=== PATIENT | female | born 1955 | race Caucasian/White ===

== ENCOUNTER 2018-04-07 15:43 | Inpatient (IN) ==
[2018-04-07] MEDS ORDERED: Bisacodyl 10 MG Supp RECTAL PRN (17:58)
[2018-04-07] MEDS ORDERED: HYDROmorphone PF Inj 1 MG/ML Ampul IV.PUSH PRN ×2 (17:58→18:12)
[2018-04-07] MEDS ORDERED: Acetaminophen 325 MG Tablet PO PRN (17:58)
--- NOTE | 2018-04-07 18:42 | P.HPCC ---
History of Present Illness Primary Care Physician: UNKNOWN History of Present Illness: 62-year-old female transferred here from [facility]. She has a history of COPD, and presented to emergency department at [place] complaining with syncopal episodes prior to admission. The patient related her syncope and presyncopal symptoms of lightheadedness, dizziness, chest pain, and shortness of breath. The patient states she is undergoing chemo therapy for her lymphoma , resulting in a chronic abdominal pain. The patient relates that she is on 2 L home O2. At the [facility] her chest pain was described as a tightness that radiated to left upper extremity, with nausea, shortness of breath, and chronic abdominal pain. She has no history of angina. In the emergency department at [place] they ruled out pulmonary embolism by CT PE angiogram. She was found to be anemic requiring blood transfusion. She underwent upper EGD with finding of active gastrointestinal bleed unable to cauterize or achieve hemostasis with endoscopic procedures. She has been transferred here for higher level of care and IR embolization of gastric artery and further procedures if indicated. The patient has arrived sedated and intubated and no further history is available. Inpatient Certification: I certify that the inpatient services were ordered in accordance with Medicare regulations governing the order. This includes certification that hospital inpatient services are reasonable and necessary and in the case of services not specified as inpatient-only under 42 CFR 419.22(n), that they are appropriately provided as inpatient services in accordance to with the 2-midnight benchmark under 43 CFR 412.3(e) Estimated Total Length of Stay (Days): 5 Plans for Post Hospital Care: Not yet determined Review of Systems unobtainable due to endotracheal tube PMFSH - Medical History Medical History: Medical History (Last Updated 04/07/18 @ 18:41 by Dorian Carmona MD) COPD (chronic obstructive pulmonary disease) Lymphoma Medications and Allergies Active Medications: Active Medications Acetaminophen (Tylenol) 650 mg PO Q6H PRN PRN Reason: PAIN 1-10 AND/OR FEVER >101F Al Hydroxide/Mg Hydroxide (Milk Of Magnesia Liq) 30 ml PO Q12H PRN PRN Reason: Mild Constipation Albuterol (Duoneb Neb (Prn)) 1 ampul NEB Q2HR NEB PRN PRN Reason: WHEEZING Bisacodyl (Dulcolax Supp) 10 mg RECTAL DAILY PRN PRN Reason: SEVERE CONSITIPATION Chlorhexidine Gluconate (Peridex 0.12% Oral Kit) 15 ml OROPHARYNG BID@0800, 2000 [facility] Chlorhexidine Gluconate (Chlorhexidine 2% Cloth) 3 pack TOPICAL DAILY@0400 MICKI Stop: 04/13/18 03:59 Chlorhexidine Gluconate (Chlorhexidine 2% Cloth) 3 pack TOPICAL DAILY@0400 PRN PRN Reason: Extra cloth needed Stop: 04/13/18 03:59 Hydromorphone HCl (Dilaudid Pf Inj) 1 mg IV.PUSH Q4H PRN PRN Reason: PAIN SCALE 6 TO 10 Sodium Chloride (Ns Inj) 1,000 mls @ 154 mls/hr IV.CONT .Q6H30M MICKI Sodium Chloride (Ns Inj) 250 mls @ 15 mls/hr IV.SIG ONCE MICKI Stop: 04/08/18 11:39 Lactulose (Lactulose Liq) 30 ml PO DAILY PRN PRN Reason: SEVERE CONSITIPATION Midazolam HCl (Versed Inj) 2 mg IV.PUSH Q1H PRN PRN Reason: SEDATION Miscellaneous Medication () 1 each OROPHARYNG 0000,0400,1200,1600 [facility] Ondansetron HCl (Zofran Inj) 4 mg IV.PUSH Q6H PRN PRN Reason: NAUSEA OR VOMITING Pantoprazole Sodium (Protonix Inj) 40 mg IV.PUSH Q12H [facility] Senna/Docusate Sodium (Keila-Colace) 1 tab PO BID [facility] Sennosides (Senokot) 17.2 mg PO Q12H PRN PRN Reason: Moderate Constipation Sodium Chloride (Ns Flush) 2 ml IV.FLUSH BID [facility] Sodium Chloride (Ns Flush) 2 ml IV.FLUSH PRN PRN PRN Reason: FLUSH AFTER USING IV ACCESS Allergies Allergy/AdvReac Type Severity Reaction Status Date / Time No Known Allergies Allergy Unverified 04/07/18 17:58 Results - Labs CBC & Chem 7: 04/09/18 04:00 04/09/18 04:00 Exam Vital signs: Vital Signs 04/07/18 17:53 Respiratory Rate 19 Pulse Oximetry 100 Intake & Output 04/06/18 04/07/18 04/07/18 18:59 06:59 18:59 Weight 52 kg - Constitutional moderate distress, chronically ill appearing - Routine HEENT Exam Head: Present: normocephalic, atraumatic Eye: Present: PERRL ENT: Present: mucous membranes moist - Routine Neck Exam Present: supple, full ROM. Absent: JVD - Routine Respiratory Exam Present: patient mechanically ventilated. Absent: accessory muscle use, prolonged expiratory phase, rhonchi, stridor, wheezes - Routine Cardiovascular Exam Present: RRR, S1, S2 - Routine Abdominal Exam Present: soft, normoactive bowel sounds - Routine Extremities Exam Absent: cyanosis, clubbing, edema - Routine Skin Exam Present: intact. Absent: cyanosis, erythema - Routine Neurological Exam Present: altered mental status, moving all extremities Septic Shock Reassessment Septic shock perfusion: reassessment completed Caprini VTE Risk Assessment Caprini VTE Risk Assessment: Moderate/High Risk (score >= 2) VTE Pharmacological Exception Reason: Hemorrhage Caprini Risk Assessment Model: Point Value = 1 Point Value = 2 Point Value = 3 Point Value = 5 Age 41-60 Minor surgery BMI > 25 kg/m2 Swollen legs Varicose veins or History of unexplained or recurrent spontaneous Oral contraceptives or hormone replacement Sepsis (< 1 month) Serious lung disease, including pneumonia (< 1 month) Abnormal pulmonary function Acute myocardial infarction Congestive heart failure (< 1 month) History of inflammatory bowel disease Medical patient at bed rest Age 61-74 Arthroscopic surgery Major open surgery (> 45 min) Laparoscopic surgery (> 45 min) Malignancy Confined to bed (> 72 hours) Immobilizing plaster cast Central venous access Age >= 75 History of VTE Family history of VTE Factor V Leiden Prothrombin [id number] Lupus anticoagulant Anticardiolipin antibodies Elevated serum homocysteine Heparin-induced thrombocytopenia Other congenital or acquired thrombophilia Stroke (< 1 month) Elective arthroplasty Hip, pelvis, or leg fracture Acute spinal cord injury (< 1 month) Prophylaxis Regimen: Total Risk Factor Score Risk Level Prophylaxis Regimen 0-1 Low Early ambulation 2 Moderate Order ONE of the following: *Sequential Compression Device (SCD) *Heparin 5000 units SQ BID 3-4 Higher Order ONE of the following medications: *Heparin 5000 units SQ TID *Enoxaparin/Lovenox 40 mg SQ daily (WT < 150 kg, CrCl > 30 mL/min) *Enoxaparin/Lovenox 30 mg SQ daily (WT < 150 kg, CrCl > 10-29 mL/min) *Enoxaparin/Lovenox 30 mg SQ BID (WT < 150 kg, CrCl > 30 mL/min) AND/OR *Sequential Compression Device (SCD) 5 or more Highest Order ONE of the following medications: *Heparin 5000 units SQ TID (Preferred with Epidurals) *Enoxaparin/Lovenox 40 mg SQ daily (WT < 150 kg, CrCl > 30 mL/min) *Enoxaparin/Lovenox 30 mg SQ daily (WT < 150 kg, CrCl > 10-29 mL/min) *Enoxaparin/Lovenox 30 mg SQ BID (WT < 150 kg, CrCl > 30 mL/min) AND *Sequential Compression Device (SCD) Assessment and Plan - Assessment and Plan Plan: Respiratory failure -Intubated for an airway protection -No weaning until hemostasis achieved -Vent bundle -DuoNeb's as needed Hematemesis with GI bleed -Transferred for higher gastric artery embolization -Monitor series of H&H -Protonix IV twice daily Anemia -Due to above -Series of H&H -Transfuse to keep hemoglobin above 7 COPD -No exacerbation -No indication for steroids or antibiotics at this time -DuoNeb scheduled and as needed -O2 supply to keep sats above 92 DVT GI prophylaxis -Teds SCDs -No pharmacological DVT prophylaxis due to active bleed -Tonics IV twice daily 35 minutes of critical care
[2018-04-07] MEDS ORDERED: hydrALAZINE HCl Inj 20 MG/ML Vial IV.PUSH PRN (18:43)
[2018-04-07] MEDS ORDERED: Sodium Chlor 0.9% Inj 250 ML IV.SIG SCH (19:00)
[2018-04-07] MEDS ORDERED: Gelatin 12 MM/7 MM Topical Foam ONE (19:49)
[2018-04-07] MEDS ORDERED: ceFAZolin 2 GM Premix Inj 2 GM/50 ML PIGGYBACK IV.SIG ONE (20:01)
--- NOTE | 2018-04-07 20:42 | P.RAD ---
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 Vascular - Arterial Procedure Celiac Procedure: Angiogram, Embolization - Additional Information Findings: Clip identified along expected location of lesser curvature. Left gastric traverses right up to clip but no active bleeding identified. Imperic embolization 2nd-3rd order branch of left gastric.
[2018-04-07 21:14] LABS: Baso # (Auto) 0.1 th/mm3 (0.0-0.2); Baso % (Auto) 0.3 % (0.0-2.0); Eos # (Auto) 0.1 th/mm3 (0.0-0.4); Eos % (Auto) 0.2 % (0.0-4.0); Hematocrit 33.2 % (35.0-46.0); Hemoglobin 11.5 gm/dL (11.6-15.3); Lymph # (Auto) 0.1 th/mm3 (1.0-4.8); Lymph % (Auto) 0.6 % (9.0-44.0); Mean Corpuscular HGB Conc 34.7 % (32.0-36.0); Mean Corpuscular Hemoglobin 29.1 pg (27.0-34.0); Mean Corpuscular Volume 83.7 fL (80.0-100.0); Mean Platelet Volume 7.8 fL (7.0-11.0); Mono # (Auto) 1.7 th/mm3 (0.0-0.9); Mono % (Auto) 6.8 % (0.0-8.0); Neut # (Auto) 22.8 th/mm3 (1.8-7.7); Neut % (Auto) 92.1 % (16.0-70.0); Platelet Count 164 th/mm3 (150-450); Red Blood Count 3.97 mil/mm3 (4.00-5.30); White Blood Count 24.8 th/mm3 (4.0-11.0)
[2018-04-07] MEDS: Pantoprazole Inj 40 MG Vial IV.PUSH SCH (21:30)
[2018-04-07 21:34] LABS: Activated Partial Thrombo Time 32.7 sec (23.4-31.7); INR 1.4 Ratio
[2018-04-07 21:37] LABS: Monocytes 2 % (0-8)
[2018-04-07 21:38] LABS: Dohle Bodies Present; Platelet Estimate Normal (Normal); Platelet Morphology Normal (Normal); RBC Morphology Normal (Normal); Toxic Granulation 1+
[2018-04-07] MEDS: Sod Chloride 0.9% Inj 1,000 ML IV.CONT SCH (21:38)
[2018-04-07 21:39] LABS: Anion Gap 9 meq/L (5-15)
[2018-04-07 21:56] LABS: Alanine Aminotransferase 14 U/L (10-53); Alkaline Phosphatase 119 U/L (45-117); Aspartate Aminotransferase 19 U/L (15-37); Blood Urea Nitrogen 10 mg/dL (7-18); Calcium 7.7 mg/dL (8.5-10.1); Carbon Dioxide 30.4 meq/L (21.0-32.0); Chloride 111 meq/L (98-107); Glomerular Filtration Rate Greater Than 89 mL/min (>89); Glucose,Random 102 mg/dL (74-106); Phosphorus 1.5 mg/dL (2.5-4.9); Sodium 150 meq/L (136-145); Total Protein 4.3 g/dL (6.4-8.2)
[2018-04-07 22:13] LABS: Potassium 2.6 meq/L (3.5-5.1)
[2018-04-07] MEDS: Chlorhexidine 0.12% Oral Kit 15 ML UDC OROPHARYNG SCH (22:28)
[2018-04-07] MEDS: Senna/Docusate Sodium 8.6/50 MG Tablet PO SCH (22:28)
[2018-04-07] MEDS ORDERED: Potassium Chloride Liq 20 MEQ/15 ML UDC PO PRN ×2 (22:59)
[2018-04-07] MEDS ORDERED: Magnesium Oxide 400 MG Tablet PO PRN (22:59)
[2018-04-07] MEDS ORDERED: Potassium Phosphate 500 MG Soluble Tablet PO PRN ×2 (22:59)
[2018-04-07] MEDS ORDERED: Potassium Chlor 40 mEq Premix 40 MEQ/100 ML PIGGYBACK IV.SIG PRN (22:59)
[2018-04-07] MEDS ORDERED: Magnesium Sulfate Inj 4 GM in Sodium Chlor 0.9% Inj 92 ML IV.SIG PRN (22:59)
[2018-04-07] MEDS ORDERED: Potassium Chlor 20 mEq Premix 20 MEQ/100 ML PIGGYBACK IV.SIG PRN ×2 (22:59)
[2018-04-07] MEDS ORDERED: Sodium Phosphate Inj 30 MMOL in Sodium Chlor 0.9% Inj 250 ML IV.SIG PRN (22:59)
[2018-04-07] MEDS: Potassium Chlor 40 mEq Premix 40 MEQ/100 ML PIGGYBACK IV.SIG PRN (23:35)
[2018-04-07] MEDS: Oral Hygiene Kit OROPHARYNG SCH (23:42)
[2018-04-08] MEDS: Propofol 1000 mg/100 ml Inj 1,000 MG/100 ML BOTTLE IV.CONT PRN ×2 (01:43→09:06)
[2018-04-08] MEDS: Potassium Chlor 40 mEq Premix 40 MEQ/100 ML PIGGYBACK IV.SIG PRN (03:18)
[2018-04-08] MEDS: Oral Hygiene Kit OROPHARYNG SCH ×4 (03:58→23:46)
[2018-04-08] MEDS: Sod Chloride 0.9% Inj 1,000 ML IV.CONT SCH ×4 (03:58→23:44)
[2018-04-08] MEDS: Chlorhexidine Gluconate 2% 1 Pack (2 Cloths) TOPICAL SCH (03:58)
[2018-04-08] MEDS ORDERED: Chlorhexidine Gluconate 2% 1 Pack (2 Cloths) TOPICAL PRN (04:00)
[2018-04-08 04:51] LABS: Hematocrit 32.8 % (35.0-46.0); Hemoglobin 11.5 gm/dL (11.6-15.3); Mean Corpuscular Volume 85.9 fL (80.0-100.0); Mean Platelet Volume 7.5 fL (7.0-11.0); Platelet Count 161 th/mm3 (150-450); Red Blood Count 3.82 mil/mm3 (4.00-5.30); Red Cell Distribution Width 15.8 % (11.6-17.2); White Blood Count 31.9 th/mm3 (4.0-11.0)
[2018-04-08 05:09] LABS: Activated Partial Thrombo Time 32.4 sec (23.4-31.7); INR 1.4 Ratio; Prothrombin Time 14.6 sec (9.8-11.6)
[2018-04-08 05:18] LABS: Alanine Aminotransferase 10 U/L (10-53); Alkaline Phosphatase 138 U/L (45-117); Anion Gap 6 meq/L (5-15); Aspartate Aminotransferase 20 U/L (15-37); Blood Urea Nitrogen 8 mg/dL (7-18); Calcium 7.1 mg/dL (8.5-10.1); Carbon Dioxide 29.6 meq/L (21.0-32.0); Chloride 116 meq/L (98-107); Glomerular Filtration Rate Greater Than 89 mL/min (>89); Glucose,Random 72 mg/dL (74-106); Magnesium 1.3 mg/dL (1.5-2.5); Phosphorus 1.5 mg/dL (2.5-4.9); Potassium 3.4 meq/L (3.5-5.1); Sodium 152 meq/L (136-145); Total Protein 4.3 g/dL (6.4-8.2)
[2018-04-08] MEDS: Magnesium Sulfate Inj 2 GM in Sodium Chlor 0.9% Inj 96 ML IV.SIG PRN (05:53)
[2018-04-08 07:03] LABS: Dohle Bodies Present; Lymphocytes 1 % (9-44); Monocytes 3 % (0-8); Platelet Estimate Normal (Normal); Platelet Morphology Normal (Normal); RBC Morphology Normal (Normal)
[2018-04-08] MEDS: Pantoprazole Inj 40 MG Vial IV.PUSH SCH ×2 (07:55→17:44)
[2018-04-08] MEDS: Potassium Phosphate Inj 30 MMOL in Sodium Chlor 0.9% Inj 250 ML IV.SIG PRN (07:55)
[2018-04-08] MEDS: Chlorhexidine 0.12% Oral Kit 15 ML UDC OROPHARYNG SCH ×2 (07:56→22:17)
[2018-04-08] MEDS: Senna/Docusate Sodium 8.6/50 MG Tablet PO SCH ×2 (09:07→22:17)
--- NOTE | 2018-04-08 18:10 | P.PNCC ---
Subjective Subjective Remarks/Hospital Course: 62-year-old female transferred here from [facility]. She has a history of COPD, and presented to emergency department at [place] complaining with syncopal episodes prior to admission. The patient related her syncope and presyncopal symptoms of lightheadedness, dizziness, chest pain, and shortness of breath. The patient states she is undergoing chemo therapy for her lymphoma , resulting in a chronic abdominal pain. The patient relates that she is on 2 L home O2. At the [facility] her chest pain was described as a tightness that radiated to left upper extremity, with nausea, shortness of breath, and chronic abdominal pain. She has no history of angina. In the emergency department at [place] they ruled out pulmonary embolism by CT PE angiogram. She was found to be anemic requiring blood transfusion. She underwent upper EGD with finding of active gastrointestinal bleed unable to cauterize or achieve hemostasis with endoscopic procedures. She has been transferred here for higher level of care and IR embolization of gastric artery and further procedures if indicated. The patient has arrived sedated and intubated and no further history is available. 04/08: Underwent IR embolization of gastric artery yesterday, overnight hemodynamically improved with stable H&H. Remains sedated and intubated Objective Vital Signs / I&O: Vital Signs 04/07/18 18:47 04/07/18 20:15 04/07/18 20:38 Temperature 97.9 F Pulse Rate 75 75 Respiratory Rate 19 Blood Pressure 146/78 H Pulse Oximetry 100 100 04/07/18 20:45 04/07/18 20:53 04/07/18 21:08 Temperature Pulse Rate 84 75 Respiratory Rate 15 20 18 Blood Pressure 160/84 H 149/80 H Pulse Oximetry 97 100 100 04/07/18 21:23 04/07/18 21:53 04/07/18 22:00 Temperature Pulse Rate 78 72 70 Respiratory Rate 20 18 Blood Pressure 153/81 H 133/88 Pulse Oximetry 100 100 04/07/18 22:23 04/07/18 22:53 04/07/18 23:23 Temperature Pulse Rate 70 70 75 Respiratory Rate 18 18 20 Blood Pressure 136/86 137/97 H 143/92 H Pulse Oximetry 100 100 100 04/08/18 00:00 04/08/18 00:23 04/08/18 00:47 Temperature 97.6 F Pulse Rate 73 70 Respiratory Rate 16 14 Blood Pressure 147/81 H Pulse Oximetry 100 100 04/08/18 01:23 04/08/18 02:00 04/08/18 02:23 Temperature Pulse Rate 77 79 79 Respiratory Rate 15 14 Blood Pressure 143/83 H 114/74 Pulse Oximetry 100 100 04/08/18 03:23 04/08/18 04:00 04/08/18 04:12 Temperature 98.0 F Pulse Rate 82 80 Respiratory Rate 14 14 14 Blood Pressure 130/76 118/63 Pulse Oximetry 100 100 04/08/18 06:00 04/08/18 07:24 04/08/18 08:00 Temperature 98.1 F Pulse Rate 82 79 Respiratory Rate 15 17 Blood Pressure 112/81 Pulse Oximetry 100 04/08/18 10:16 04/08/18 11:41 04/08/18 12:00 Temperature Pulse Rate 78 97 H Respiratory Rate 18 Blood Pressure Pulse Oximetry 100 04/08/18 13:26 04/08/18 14:00 04/08/18 14:30 Temperature Pulse Rate 85 94 H Respiratory Rate 20 Blood Pressure Pulse Oximetry 100 04/08/18 14:34 Temperature Pulse Rate Respiratory Rate Blood Pressure Pulse Oximetry 100 Intake & Output 04/07/18 04/08/18 04/08/18 18:59 06:59 18:59 Intake Total 1150 / 1150 2300 / 2300 Output Total 750 / 750 Balance 400 / 400 2300 / 2300 Weight 52 kg 44 kg Intake: IV 1150 / 1150 2300 / 2300 Diprivan 1000 mg/100 ml Inj 1, 100 / 100 000 mg In 100 ml @ 5 MCG/KG/MIN 1.56 mls/hr IV.CONT TITRATE PRN Rx#:[id number] NS Inj 1,000 ML @ 154 mls/hr IV 1000 / 1000 1999 / 1999 .CONT .Q6H30M MICKI Rx#:[id number] Magnesium Sulfate Inj 2 GM In 100 / 100 NS Inj 96 ML @ 50 mls/hr IV.SIG UNSCH PRN Rx#:[id number] KCl 40 mEq Premix Inj 40 meq In 100 / 100 100 / 100 100 ml @ 25 mls/hr IV.SIG Q2H PRN Rx#:[id number] Ancef 2 GM Premix Inj 2 gm In 50 / 50 50 ml @ 0 mls/hr IV.SIG .STK- MED ONE Rx#:[id number] Output: Urine Amount (Catheter) 750 / 750 Indwelling Urethral Catheter 750 / 750 Other: Date of Last Bowel Movement 04/07/18 04/08/18 Weight On Admission 43 kg Result Diagrams: 04/09/18 04:00 04/09/18 04:00 Objective Remarks: - Constitutional moderate distress, chronically ill appearing - Routine HEENT Exam Head: Present: normocephalic, atraumatic Eye: Present: PERRL ENT: Present: mucous membranes moist - Routine Neck Exam Present: supple, full ROM. Absent: JVD - Routine Respiratory Exam Present: patient mechanically ventilated. Absent: accessory muscle use, prolonged expiratory phase, rhonchi, stridor, wheezes - Routine Cardiovascular Exam Present: RRR, S1, S2 - Routine Abdominal Exam Present: soft, normoactive bowel sounds - Routine Extremities Exam Absent: cyanosis, clubbing, edema - Routine Skin Exam Present: intact. Absent: cyanosis, erythema - Routine Neurological Exam Present: altered mental status, moving all extremities Assessment and Plan - Assessment and Plan Plan: Respiratory failure -Intubated for an airway protection -Patient hemodynamically stable -Hemostasis achieved with embolization of 2 branches of gastric artery last night -SBT's -Attempt to extubate -DuoNeb's as needed Hematemesis with GI bleed -Transferred for gastric artery embolization -Procedure successfully completed last night -Monitor series of H&H -Protonix IV twice daily Anemia -Due to above -Series of H&H -Transfuse to keep hemoglobin above 7 COPD -No exacerbation -No indication for steroids or antibiotics at this time -DuoNeb scheduled and as needed -O2 supply to keep sats above 92 DVT GI prophylaxis -Teds SCDs -No pharmacological DVT prophylaxis due to active bleed -Protonic IV twice daily 35 minutes of critical care
[2018-04-09 04:24] LABS: Baso # (Auto) 0.2 th/mm3 (0.0-0.2); Baso % (Auto) 0.4 % (0.0-2.0); Eos # (Auto) 0.1 th/mm3 (0.0-0.4); Eos % (Auto) 0.1 % (0.0-4.0); Hematocrit 33.1 % (35.0-46.0); Hemoglobin 11.4 gm/dL (11.6-15.3); Lymph # (Auto) 0.1 th/mm3 (1.0-4.8); Lymph % (Auto) 0.2 % (9.0-44.0); Mean Corpuscular HGB Conc 34.3 % (32.0-36.0); Mean Corpuscular Hemoglobin 29.3 pg (27.0-34.0); Mean Corpuscular Volume 85.3 fL (80.0-100.0); Mean Platelet Volume 7.9 fL (7.0-11.0); Mono # (Auto) 1.7 th/mm3 (0.0-0.9); Mono % (Auto) 4.5 % (0.0-8.0); Neut # (Auto) 37.1 th/mm3 (1.8-7.7); Neut % (Auto) 94.8 % (16.0-70.0); Platelet Count 177 th/mm3 (150-450); Red Blood Count 3.88 mil/mm3 (4.00-5.30); White Blood Count 39.2 th/mm3 (4.0-11.0)
[2018-04-09 04:41] LABS: Alanine Aminotransferase 12 U/L (10-53); Alkaline Phosphatase 164 U/L (45-117); Anion Gap 8 meq/L (5-15); Aspartate Aminotransferase 25 U/L (15-37); Blood Urea Nitrogen 5 mg/dL (7-18); Calcium 6.9 mg/dL (8.5-10.1); Carbon Dioxide 29.9 meq/L (21.0-32.0); Chloride 114 meq/L (98-107); Glomerular Filtration Rate Greater Than 89 mL/min (>89); Glucose,Random 60 mg/dL (74-106); Magnesium 1.4 mg/dL (1.5-2.5); Phosphorus 2.4 mg/dL (2.5-4.9); Sodium 152 meq/L (136-145); Total Protein 4.5 g/dL (6.4-8.2)
[2018-04-09 04:45] LABS: Potassium 2.6 meq/L (3.5-5.1)
[2018-04-09] MEDS: Oral Hygiene Kit OROPHARYNG SCH ×2 (05:01→13:41)
[2018-04-09] MEDS: Chlorhexidine Gluconate 2% 1 Pack (2 Cloths) TOPICAL SCH (05:01)
[2018-04-09] MEDS: Pantoprazole Inj 40 MG Vial IV.PUSH SCH (05:01)
[2018-04-09] MEDS: Potassium Chlor 40 mEq Premix 40 MEQ/100 ML PIGGYBACK IV.SIG PRN ×2 (05:01→19:45)
[2018-04-09] MEDS: Magnesium Sulfate Inj 2 GM in Sodium Chlor 0.9% Inj 96 ML IV.SIG PRN (05:20)
[2018-04-09 05:31] LABS: Eosinophils 1 % (0-4); Lymphocytes 2 % (9-44); Monocytes 1 % (0-8)
[2018-04-09 05:32] LABS: Platelet Estimate Normal (Normal); Platelet Morphology Normal (Normal); Toxic Granulation 1+
[2018-04-09] MEDS: Potassium Phosphate Inj 30 MMOL in Sodium Chlor 0.9% Inj 250 ML IV.SIG PRN (07:34)
[2018-04-09] MEDS: Senna/Docusate Sodium 8.6/50 MG Tablet PO SCH ×2 (09:16→20:09)
[2018-04-09] MEDS: Chlorhexidine 0.12% Oral Kit 15 ML UDC OROPHARYNG SCH ×2 (09:16→19:17)
--- NOTE | 2018-04-09 14:24 | P.PNIM ---
Subjective Interval history: Reports that she feels hungry. Wants to eat. No further bloody stools or black tarry stools. Reports no abdominal pain. No nausea or vomiting. Physical Exam Vital signs: Vital Signs 04/08/18 14:30 04/08/18 14:34 04/08/18 16:00 Temperature 98.4 F Pulse Rate 94 H 79 Respiratory Rate 20 Blood Pressure 157/94 H Pulse Oximetry 100 04/08/18 19:35 04/08/18 20:00 04/08/18 22:00 Temperature 97.9 F Pulse Rate 94 H 77 Respiratory Rate 24 Blood Pressure 150/95 H Pulse Oximetry 96 92 L 04/09/18 00:00 04/09/18 02:00 04/09/18 04:00 Temperature 97.9 F 98.2 F Pulse Rate 87 78 75 Respiratory Rate 22 19 Blood Pressure 145/84 H 134/94 H Pulse Oximetry 99 98 04/09/18 06:00 04/09/18 08:00 04/09/18 08:03 Temperature Pulse Rate 79 74 Respiratory Rate 21 Blood Pressure 115/68 Pulse Oximetry 99 99 04/09/18 10:00 04/09/18 12:00 Temperature Pulse Rate 80 67 Respiratory Rate 20 Blood Pressure 120/85 Pulse Oximetry 100 Intake & Output 04/08/18 04/09/18 04/09/18 18:59 06:59 18:59 Intake Total 2560 / 2560 1000 / 1000 200 / 200 Output Total 750 / 750 3600 / 3600 200 / 200 Balance 1810 / 1810 -2600 / -2600 0 / 0 Weight 42 kg Intake: IV 2560 / 2560 1000 / 1000 200 / 200 Diprivan 1000 mg/100 ml Inj 1, 100 / 100 000 mg In 100 ml @ 5 MCG/KG/MIN 1.56 mls/hr IV.CONT TITRATE PRN Rx#:[id number] NS Inj 1,000 ML @ 154 mls/hr IV 1999 / 1999 1000 / 1000 .CONT .Q6H30M [facility]ICKI Rx#:[id number] Magnesium Sulfate Inj 2 GM In 100 / 100 100 / 100 NS Inj 96 ML @ 50 mls/hr IV.SIG UNSCH PRN Rx#:[id number] KCl 40 mEq Premix Inj 40 meq In 100 / 100 100 / 100 100 ml @ 25 mls/hr IV.SIG Q2H PRN Rx#:[id number] Potassium Phosphate Inj 30 MMOL 260 / 260 In NS Inj 250 ML @ 42 mls/hr IV.SIG UNSCH PRN Rx#:[id number] Oral 0 / 0 Output: Urine 450 / 450 200 / 200 Urine Amount (Catheter) 750 / 750 3150 / 3150 Indwelling Urethral Catheter 750 / 750 3150 / 3150 Other: # Voids 1 1 Date of Last Bowel Movement 04/08/18 04/08/18 04/09/18 # Bowel Movements 5 # Incontinent Bowel Movements 7 Narrative: Thin white female sitting up in her bed in no acute distress Cardiovascular regular rhythm regular rate Lungs relatively clear, diminished breath sounds bilaterally Abdomen soft nontender Extremities no cyanosis clubbing edema Neurological exam alert and oriented x3 does move bilateral upper and lower extremities Urinary Catheter Management Indwelling Urethral Catheter: Cath placed during this visit: yes, but has since been removed by the nurse Reason for continuing: Decision to DC catheter Removal date: 04/09/18 Removal time: 05:00 Results Labs CBC & Chem 7: 04/09/18 04:00 04/09/18 04:00 Assessment and Plan (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 - Non-Hodgkin lymphoma, unspecified, intra-abdominal lymph nodes Status: Acute (2) GI bleed: Code(s): K92.2 - Gastrointestinal hemorrhage, unspecified Status: Acute (3) Acute blood loss anemia: Code(s): D62 - Acute posthemorrhagic anemia Status: Acute Plan 60-year-old female with a history of COPD with O2 dependence at 2 L, lymphoma transferred from [facility] after she presented with presyncope symptoms of lightheadedness and dizziness and found to have active GI bleed with inability to cauterize or achieve hemostasis and transferred to [place] critical care for embolization. Acute GI bleed-with a history of gastric lymphoma with active bleed status post gastric artery embolization 04/08 by interventional radiology Serial hemoglobin hematocrit has been stable. Continue with Protonix 40 mg IV twice daily Start full liquid diet, continue monitor hemoglobin. Acute anemia blood loss due to GI bleedhemoglobin hematocrit has been stable overnight. Continue Protonix Acute respiratory failure status post intubation for airway protection now extubated History of COPD with 2 L of oxygenno active exacerbation, continue with DuoNeb treatment and wean O2 as tolerated History of lymphoma with leukocytosisfollow-up with oncologist Hypokalemiareplete Hypophosphatemiareplete Hypomagnesiareplete schedule magnesium Hypernatremia - stop IVF NS, encourage oral water intake. DVT prophylaxisSCDs, no anticoagulation secondary to GI bleed Transfer out of the intensive care unit If respiratory status and hemoglobin continues to be stable consideration for discharge home in the morning. Progress Note: Quality VTE Deep Vein Thrombosis/Pulmonary Embolism Present on Admission: No
[2018-04-09] MEDS ORDERED: Naloxone Inj 0.4 MG/ML Vial IV.PUSH PRN (14:27)
[2018-04-09] MEDS ORDERED: Acetaminophen 325 MG Tablet PO PRN (14:27)
[2018-04-09] MEDS: Magnesium Oxide 400 MG Tablet PO SCH (20:08)
[2018-04-10] MEDS: Chlorhexidine Gluconate 2% 1 Pack (2 Cloths) TOPICAL SCH (06:01)
[2018-04-10 06:03] LABS: Baso # (Auto) 0.6 th/mm3 (0.0-0.2); Baso % (Auto) 2.6 % (0.0-2.0); Eos # (Auto) 0.1 th/mm3 (0.0-0.4); Eos % (Auto) 0.3 % (0.0-4.0); Hematocrit 32.2 % (35.0-46.0); Hemoglobin 11.1 gm/dL (11.6-15.3); Lymph # (Auto) 0.4 th/mm3 (1.0-4.8); Lymph % (Auto) 1.8 % (9.0-44.0); Mean Corpuscular HGB Conc 34.5 % (32.0-36.0); Mean Platelet Volume 8.2 fL (7.0-11.0); Mono # (Auto) 0.7 th/mm3 (0.0-0.9); Neut % (Auto) 92.3 % (16.0-70.0); Platelet Count 160 th/mm3 (150-450); Red Cell Distribution Width 16.4 % (11.6-17.2); White Blood Count 23.9 th/mm3 (4.0-11.0)
[2018-04-10 06:55] LABS: Anion Gap 7 meq/L (5-15); Blood Urea Nitrogen 3 mg/dL (7-18); Calcium 7.1 mg/dL (8.5-10.1); Carbon Dioxide 30.9 meq/L (21.0-32.0); Chloride 109 meq/L (98-107); Glomerular Filtration Rate Greater Than 89 mL/min (>89); Glucose,Random 57 mg/dL (74-106); Magnesium 1.4 mg/dL (1.5-2.5); Sodium 147 meq/L (136-145)
[2018-04-10 07:10] LABS: Albumin 1.9 g/dL (3.4-5.0); Calcium-Albumin Corrected 8.8 mg/dL (8.5-10.1)
[2018-04-10 07:18] LABS: Potassium 2.8 meq/L (3.5-5.1)
[2018-04-10 07:39] LABS: Eosinophils 1 % (0-4); Monocytes 3 % (0-8)
[2018-04-10 07:40] LABS: Platelet Estimate Normal (Normal); Platelet Morphology Normal (Normal); RBC Morphology Normal (Normal)
[2018-04-10] MEDS: Senna/Docusate Sodium 8.6/50 MG Tablet PO SCH ×2 (08:15→21:33)
[2018-04-10] MEDS: Chlorhexidine 0.12% Oral Kit 15 ML UDC OROPHARYNG SCH ×2 (08:15→21:30)
[2018-04-10] MEDS: Magnesium Oxide 400 MG Tablet PO SCH ×3 (08:15→21:29)
[2018-04-10] MEDS: Potassium Chlor 40 mEq Premix 40 MEQ/100 ML PIGGYBACK IV.SIG PRN (09:50)
[2018-04-10] MEDS: Magnesium Sulfate Inj 2 GM in Sodium Chlor 0.9% Inj 96 ML IV.SIG PRN (10:05)
[2018-04-10] MEDS ORDERED: Potassium Chloride 25 MEQ Effervescent Tablet PO ONE (12:18)
--- NOTE | 2018-04-10 12:23 | P.PNIM ---
Subjective Interval history: No further stools. No abdominal pain. Tolerating full liquids. Would like to try soft diet. States that history of hypokalemia and difficult to treat. Physical Exam Vital signs: Vital Signs 04/09/18 13:33 04/09/18 14:00 04/09/18 14:01 Temperature Pulse Rate 84 91 H 94 H Respiratory Rate 19 27 H 30 H Blood Pressure 132/74 Pulse Oximetry 94 L 99 94 L 04/09/18 15:00 04/09/18 16:00 04/09/18 16:01 Temperature Pulse Rate 76 66 66 Respiratory Rate 20 18 18 Blood Pressure 130/79 154/84 H Pulse Oximetry 96 98 98 04/09/18 17:00 04/09/18 18:00 04/09/18 19:00 Temperature Pulse Rate 75 67 79 Respiratory Rate 31 H 19 21 Blood Pressure 122/76 164/84 H 125/83 Pulse Oximetry 86 L 100 98 04/09/18 20:00 04/09/18 20:07 04/09/18 20:22 Temperature 99.3 F Pulse Rate 82 79 Respiratory Rate 19 24 Blood Pressure 130/88 Pulse Oximetry 98 98 98 04/09/18 21:00 04/09/18 22:00 04/09/18 23:00 Temperature Pulse Rate 79 75 77 Respiratory Rate 25 H 19 18 Blood Pressure 137/93 H 125/79 138/78 Pulse Oximetry 99 98 94 L 04/10/18 00:00 04/10/18 01:00 04/10/18 02:00 Temperature 98.7 F Pulse Rate 71 66 69 Respiratory Rate 19 18 16 Blood Pressure 132/86 161/91 H 136/77 Pulse Oximetry 97 98 96 04/10/18 03:00 04/10/18 04:00 04/10/18 06:00 Temperature 98.5 F Pulse Rate 70 73 81 Respiratory Rate 29 H 15 Blood Pressure 135/80 154/89 H Pulse Oximetry 97 94 L 04/10/18 07:00 04/10/18 08:00 04/10/18 08:52 Temperature 98.3 F Pulse Rate 60 65 99 H Respiratory Rate 16 19 23 Blood Pressure 160/92 H 142/83 H Pulse Oximetry 100 100 98 04/10/18 08:53 04/10/18 08:55 04/10/18 09:00 Temperature Pulse Rate 99 H 114 H 100 H Respiratory Rate 28 H 32 H 22 Blood Pressure 128/68 128/72 Pulse Oximetry 98 86 L 98 04/10/18 09:07 04/10/18 10:00 04/10/18 11:20 Temperature 97.8 F Pulse Rate 92 H 81 Respiratory Rate 20 Blood Pressure 146/80 H Pulse Oximetry 97 100 Intake & Output 04/09/18 04/10/18 04/10/18 18:59 06:59 18:59 Intake Total 200 / 200 340 / 340 260 / 260 Output Total 800 / 800 750 / 750 Balance -600 / -600 -410 / -410 260 / 260 Weight 41.7 kg Intake: IV 200 / 200 100 / 100 260 / 260 Magnesium Sulfate Inj 2 GM In 100 / 100 NS Inj 96 ML @ 50 mls/hr IV.SIG UNSCH PRN Rx#:[id number] KCl 40 mEq Premix Inj 40 meq In 100 / 100 100 / 100 100 ml @ 25 mls/hr IV.SIG Q2H PRN Rx#:[id number] Potassium Phosphate Inj 30 MMOL 260 / 260 In NS Inj 250 ML @ 42 mls/hr IV.SIG UNSCH PRN Rx#:[id number] Oral 240 / 240 Output: Urine 800 / 800 750 / 750 Other: # Voids 8 7 Date of Last Bowel Movement 04/09/18 04/10/18 04/10/18 # Bowel Movements 9 6 Narrative: Thin white female sitting up in her bed in no acute distress Cardiovascular regular rhythm regular rate Lungs relatively clear, diminished breath sounds bilaterally Abdomen soft nontender Extremities no cyanosis clubbing edema Neurological exam alert and oriented x3 does move bilateral upper and lower extremities Urinary Catheter Management Indwelling Urethral Catheter: Cath placed during this visit: yes, but has since been removed by the nurse Reason for continuing: Decision to DC catheter Removal date: 04/09/18 Removal time: 05:00 Results Labs CBC & Chem 7: 04/10/18 03:30 04/10/18 03:30 Assessment and Plan (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 after she presented with presyncope symptoms of lightheadedness and dizziness and found to have active GI bleed with inability to cauterize or achieve hemostasis and transferred to [place] critical care for embolization. Acute GI bleed-with a history of gastric lymphoma with active bleed status post gastric artery embolization 04/08 by interventional radiology Serial hemoglobin hematocrit has been stable. Continue with Protonix 40 mg IV twice daily Tolerating full liquid diet will advance to soft diet today. Continue monitor hemoglobin. Acute anemia blood loss due to GI bleedhemoglobin hematocrit has been stable overnight. Continue Protonix Acute respiratory failure status post intubation for airway protection now extubated History of COPD with 2 L of oxygenno active exacerbation, continue with DuoNeb treatment and wean O2 as tolerated History of lymphoma with leukocytosisfollow-up with oncologist Hypokalemiareplete; patient given 60 mEq IV today ;we will recheck this afternoon Hypophosphatemiareplete Hypomagnesiareplete; increase schedule magnesium dose Hypernatremia - stop IVF NS, encourage oral water intake. DVT prophylaxisSCDs, no anticoagulation secondary to GI bleed Transfer out of the intensive care unit If respiratory status and hemoglobin continues to be stable; and potassium improves, consideration for discharge home in the morning. Patient declines home health care. Progress Note: Quality VTE Deep Vein Thrombosis/Pulmonary Embolism Present on Admission: No
--- NOTE | 2018-04-10 15:34 | P.DIET ---
Nutritional Evaluation Type of nutrition evaluation: initial Nutrition consult regarding: Diet Evaluation Nutrition screening: Weight Loss > 10 lbs Screening comments: 04/09/18 WLS Subjective Subjective Comments: Pt mentioned she has not consumed any solid food for a month and that she lost 30lb in the last 6 months d/t chemo/gastric ulcer pain. Pt said she dislikes Ensure and would rather drink carnation instant breakfast. Objective - Diagnosis lymphoma - Indications of Malnutrition Classification: Chronic disease or injury-related Malnutrition Severity: Severe Characteristics: Weight loss (30lb in 6 months (~25% of usual body wt of 120lb)) , Fat loss (severe body fat loss of orbital, triceps.), Muscle loss (severe muscle loss of clavicles, shoulders.) - Objective Body Mass Index: 16.7 % IBW: 83 (IBW = 110lb) Body Weight Used for Calculations: IBW (for protein needs), Actual (for everngy needs 41.7kg) Energy Needs - Lower Range (kCal/kg): 30 Energy Needs - Upper Range (kCal/kg): 35 Lower Limit kCal/kg (kCals): 1,251 Upper Limit kCal/kg (kCals): 1,460 Lower Limit Protein Factor (Grams per Kg): 1.2 Upper Limit Protein Factor (Grams per Kg): 1.4 Lower Protein Needs (Protein): 60 Upper Protein Needs (Protein): 70 Dietitian Reviewed in Medical Record: Current diet, Curent medications, Intake & Output, Labs, Medical history Diet Order: regular, soft Oral Diet Intake Amount: Fair 50-75% Objective Comments: PMH: COPD, lymphoma Labs: K+ 2.8, Ca+ 7.1, random glucose 57 LBM 04/08/18 04/08/18 s/p gastric artery embolization by IR Assessment Assessment: Pt currently at nutritional risk r/t reported unplanned wt loss. Pt is on a regular, soft diet now w/ her appetite improving and is consuming around 50% of her meal trays. Per MD, pt felt hungry today and has no more black stools. RD recommend changing Ensure Enlive to [place] Instant Breakfast TID. Continue to monitor PO and supplement intake. Labs reviewed, dietitian following. Recommendations: 1. Continue regular diet 2. RD recommend changing Ensure Enlive to [place] Instant Breakfast TID 3. Continue to monitor PO and supplement intake 4. Dietitian following Dietitian to Monitor: Lab values, Electrolytes, Supplement acceptance, Intake & Output, Diet tolerance, Weight change, PO Intake, Medical course
[2018-04-11] MEDS: Chlorhexidine Gluconate 2% 1 Pack (2 Cloths) TOPICAL SCH (06:43)
[2018-04-11 08:04] LABS: Baso # (Auto) 0.2 th/mm3 (0.0-0.2); Baso % (Auto) 1.1 % (0.0-2.0); Eos % (Auto) 0.2 % (0.0-4.0); Hematocrit 34.8 % (35.0-46.0); Hemoglobin 11.8 gm/dL (11.6-15.3); Lymph % (Auto) 0.3 % (9.0-44.0); Mean Corpuscular HGB Conc 33.8 % (32.0-36.0); Mean Corpuscular Hemoglobin 29.4 pg (27.0-34.0); Mean Corpuscular Volume 87.2 fL (80.0-100.0); Mono # (Auto) 0.6 th/mm3 (0.0-0.9); Mono % (Auto) 4.7 % (0.0-8.0); Neut # (Auto) 12.9 th/mm3 (1.8-7.7); Neut % (Auto) 93.7 % (16.0-70.0); Platelet Count 162 th/mm3 (150-450); Red Blood Count 3.99 mil/mm3 (4.00-5.30); Red Cell Distribution Width 16.5 % (11.6-17.2); White Blood Count 13.7 th/mm3 (4.0-11.0)
[2018-04-11 08:25] VITALS: RESP 20; O2SAT 100
[2018-04-11 08:33] LABS: Anion Gap 3 meq/L (5-15); Blood Urea Nitrogen 5 mg/dL (7-18); Calcium 7.1 mg/dL (8.5-10.1); Carbon Dioxide 35.2 meq/L (21.0-32.0); Chloride 107 meq/L (98-107); Glomerular Filtration Rate Greater Than 89 mL/min (>89); Glucose,Random 68 mg/dL (74-106); Magnesium 1.6 mg/dL (1.5-2.5); Potassium 3.6 meq/L (3.5-5.1); Sodium 145 meq/L (136-145)
[2018-04-11 08:56] LABS: Calcium-Albumin Corrected 8.7 mg/dL (8.5-10.1)
--- NOTE | 2018-04-11 09:06 | IR ---
EXAM DATE: 04/07/2018 10:03 PM EST AGE/SEX: 62 years / Female INDICATIONS: Patient presents from [facility] with a gastric bleed in need of intervention. CLINICAL DATA: This is the patient's initial encounter. Patient reports that signs and symptoms have been present for 1 day and indicates a pain score of Nonresponsive. MEDICAL/SURGICAL HISTORY: Chronic obstructive pulmonary disease. Non-responsive. COMPARISON: No prior exams available for comparison. FLUORO TIME (min): 20 IMAGE SERIES: 18 RADIATION DOSE: 215.9mGy CAK ACCESS SITE: Right femoral artery SEDATION TIME (min): 45 CONTRAST (cc): 120cc Visipaque (iodixanol) MEDICATION(S): 5mg midazolam (Versed) IV ; ; ; ; DEVICE(S): Left gastric vein 3x2 Tornado .018 ; Left gastric vein 3x2 Tornado .018 ; Left gastric vein 3x2 Torna do .018 ; ; ; ; . . PROCEDURE : 1. Ultrasound-guided puncture of the access site. 2. Conscious sedation with continuous EKG and Oximetry monitoring. 3. Angiography of the left gastric 4. Coil embolization, left gastric EXAM DATE: 04/07/2018 10:03 PM EST AGE/SEX: 62 years / Female INDICATIONS: Patient presents from [facility] with a gastric bleed in need of intervention. CLINICAL DATA: This is the patient's initial encounter. Patient reports that signs and symptoms have been present for 1 day and indicates a pain score of Nonresponsive. MEDICAL/SURGICAL HISTORY: Chronic obstructive pulmonary disease. Non-responsive. COMPARISON: No prior exams available for comparison. FLUORO TIME (min): 20 IMAGE SERIES: 18 ACCESS SITE: Right femoral artery SEDATION TIME (min): 45 CONTRAST (cc): 120cc Visipaque (iodixanol) MEDICATION(S): 5mg midazolam (Versed) IV DEVICE(S): Left gastric vein 3x2 Tornado .018 Left gastric vein 3x2 Tornado .018 Left gastric vein 3x2 Tornado .018 . . PROCEDURE : 1. Ultrasound-guided puncture of the access site. 2. Angiography of the access site prior to closure device. 3. Conscious sedation with continuous EKG and Oximetry monitoring. 4. Percutaneous closure of the access site. 5. Angiography of the left gastric 6. Coil and Gelfoam embolization, left gastric 7. Angiography of the SMA. The risks, benefits and alternatives to the procedure were explained and verbal and written consent w as obtained. The site was prepped in sterile fashion. Full sterile technique was used, including ca p, mask, sterile gloves and gown and a large sterile sheet. Hand hygiene and 2% chlorhexidine and/or betadine/alcohol prep was utilized per protocol for cutaneous antisepsis. Sterile gel and sterile p robe cover were utilized for ultrasound guidance. The skin and subcutaneous tissues were infiltrated with local anesthetic solution. With ultrasound and fluoroscopic guidance the selected artery was punctured and a vascular sheath was placed. Angiography of the common femoral artery was performed for evaluation prior to percutaneous closure device placement. An Ansell 2 catheter was used to select the origin of the celiac. Contrast injection showed anatomic variant with a replaced right hepatic (this was confirmed with a direct SMA injection). A previously placed Hemoclip projected over the lesser curvature of the stomach. Hockey-stick catheter and Glidewi re were manipulated into the origin of the left gastric and this vessel appear to extend right up to the Hemoclip with apparent occlusion of one of the branch vessels in the region of the clip. As such, it was presumed that this was the predominant blood supply to the ulcerative mass described by GI. A renegade high flow catheter was advanced through the glide hockey-stick out into the distal branch o f the left gastric adjacent to the hemoclips. A series of 3, 0.018, 3 x 2 tornado coils were deployed into the left gastric and a few cc of Gelfoam slurry was injected behind coils to cessation of anteg rade flow. This was confirmed with a nonselective injection of the Ansell sheath. Hemostasis was obtained with the prescribed medicated closure device. Conscious sedation was perform ed with the prescribed dosages and duration as above in the presence of an independent trained radiol ogy nurse to assist in the monitoring of the patient. EKG and oximetry remained stable throughout th e procedure. CONCLUSION: 1. I do not see evidence of an active bleed. However, a branch of the left gastric was identified ap proaching the previously placed Hemoclip and therefore, this is presumably the dominant blood supply to the ulcerated gastric mass described by the GI service. 2. Empiric embolization of the left gastric artery with coils and Gelfoam as above. Electronically signed by: Uday Justice MD Board Certified Radiologist 04/11/2018 9:04 AM EST
[2018-04-11 09:40] LABS: Metamyelocytes 1 % (0-1); Monocytes 2 % (0-8); Myelocytes 1 % (0-0)
[2018-04-11 09:41] LABS: Platelet Morphology Normal (Normal)
[2018-04-11] MEDS: Magnesium Oxide 400 MG Tablet PO SCH (09:42)
[2018-04-11] MEDS: Senna/Docusate Sodium 8.6/50 MG Tablet PO SCH (09:42)
[2018-04-11] MEDS: Chlorhexidine 0.12% Oral Kit 15 ML UDC OROPHARYNG SCH (12:04)
--- NOTE | 2018-04-11 12:09 | P.DS ---
DS: Providers Date of admission: 04/07/18 17:49 Primary care physician: UNKNOWN Consults: 04/08/18 21:07 Consult to Hospitalist Routine Consulting Provider: Doris Cordova Reason for Consultation: GI bleed Notified:: Service Spoke with:: JUANITA Date Notified:: 04/08/18 Time Notified:: 17:12 Ordering Provider: HILDA Brief History from admission: 62-year-old female transferred here from [facility]. She has a history of COPD, and presented to emergency department at [facility] complaining with syncopal episodes prior to admission. The patient related her syncope and presyncopal symptoms of lightheadedness, dizziness, chest pain, and shortness of breath. The patient states she is undergoing chemo therapy for her lymphoma , resulting in a chronic abdominal pain. The patient relates that she is on 2 L home O2. At the [facility] her chest pain was described as a tightness that radiated to left upper extremity, with nausea, shortness of breath, and chronic abdominal pain. She has no history of angina. In the emergency department at [facility] they ruled out pulmonary embolism by CT PE angiogram. She was found to be anemic requiring blood transfusion. She underwent upper EGD with finding of active gastrointestinal bleed unable to cauterize or achieve hemostasis with endoscopic procedures. She has been transferred here for higher level of care and IR embolization of gastric artery and further procedures if indicated. The patient has arrived sedated and intubated and no further history is available. 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 Rosado is a 60-year-old female. She has a history of COPD and is oxygen dependent at 2 L at home. At baseline she also has lymphoma. She was sent from [facility] secondary to lightheadedness and dizziness and found to have active GI bleed. GI bleed is treated during his hospital stay and patient has now shown stability of hemoglobin. Her respiratory status has returned to baseline. Potassium level is also within normal limits at this point. Given she has returned to baseline without signs of active bleed for over 48 hours she is medically stable and cleared for discharge home today. Time Spent with Patient Total time spent providing and/or coordinating discharge services: Less than 30 minutes Quality: VTE Deep Vein Thrombosis/Pulmonary Embolism Present on Admission: No Results Labs on day of discharge: Labs from last 24 hours 04/11/18 04/11/18 04/10/18 07:45 07:45 14:37 WBC 13.7 H RBC 3.99 L Hgb 11.8 Hct 34.8 L MCV 87.2 MCH 29.4 MCHC 33.8 RDW 16.5 Plt Count 162 MPV 8.0 Prelim Diff (Auto) Slide review pending Neut % (Auto) 93.7 H Lymph % (Auto) 0.3 L [place] % (Auto) 4.7 Eos % (Auto) 0.2 Baso % (Auto) 1.1 Neut # (Auto) 12.9 H Lymph # (Auto) 0.0 L [place] # (Auto) 0.6 Eos # (Auto) 0.0 Baso # (Auto) 0.2 WBC Differential Manual diff final Seg Neuts % (Manual) 93 H Band Neuts % (Manual) 3 Monocytes % (Manual) 2 Metamyelocytes % (Man) 1 Myelocytes % (Man) 1 H Abs Neuts (Manual) 13.4 H Differential Comment . Platelet Estimate Low L Platelet Morphology Normal Sodium 145 Potassium 3.6 3.8 D Chloride 107 Carbon Dioxide 35.2 H Anion Gap 3 L BUN 5 L Creatinine 0.23 L Estimated GFR Greater than 89 Random Glucose 68 L Calcium 7.1 L* Calcium Adj for Albumin 8.7 Magnesium 1.6 Albumin 2.0 L Impressions ITS Impressions Abdominal Angiography 04/07/18 18:05 CONCLUSION: 1. I do not see evidence of an active bleed. However, a branch of the left gastric was identified approaching the previously placed Hemoclip and therefore , this is presumably the dominant blood supply to the ulcerated gastric mass described by the GI service. 2. Empiric embolization of the left gastric artery with coils and Gelfoam as above. Discharge Plan Discharge Disposition Patient Disposition: Discharge Home Discharge Condition Condition: Stable Discharge Order Discharge Orders: Discharge Order (Routine); Ordered 04/11/18 Ordered By: Mack Salomon Discharge Details Anticipated Discharge Date: 04/11/18 Physicians Team Primary Care Provider: UNKNOWN, Attending Provider: Mack Salomon Rxs /Orders / Referrals /Forms Referrals: UNKNOWN, [Primary Care Provider] - See Instructions (CALL [phone] 8AM THE DAY YOU WOULD LIKE [place] [address])
[2018-04-11 12:19] VITALS: BP 131/71; PULSE 86; TEMP 98.4
== END 2018-04-11 15:04 | disposition home or self-care (01) | DRG 840 ==
LOC: HIMC 17:49 → N05 04-10 11:28
PROVIDERS: ADMIT Hospitalist; ATTEND Hospitalist
DX: K92.0 Hematemesis; E83.39 Other disorders of phosphorus metabolism; E83.42 Hypomagnesemia; J44.9 Chronic obstructive pulmonary disease, unspecified; D62 Acute posthemorrhagic anemia; E87.0 Hyperosmolality and hypernatremia; Z99.81 Dependence on supplemental oxygen; E87.6 Hypokalemia; C85.93 Non-Hodgkin lymphoma, unspecified, intra-abdominal lymph nodes; J96.00 Acute respiratory failure, unspecified whether with hypoxia or hypercapnia; G89.29 Other chronic pain; D72.829 Elevated white blood cell count, unspecified; R10.9 Unspecified abdominal pain
CPT/HCPCS: 36247; 36248; 37244; 75726; 75774; 76937; 80048; 80053; 82040; 82948; 82962; 83605; 83735; 84100; 84132; 85025; 85610; 85730; 86850; 86900; 86901; 86923; 87324; 87449; 87493; 87641; 94002; 94003; 94150; 94656; 94657; 97162; 99145; 99152; 99153; A4646; C1751; C1760; C1769; C1887; C1893; C1894; C9113; J0690; J2250; J2405; J2704; J3475; J3480; J7030; J7050; Q9949; Q9967